=== PATIENT | male | born 1990 | race Two or more races ===

== ENCOUNTER 2020-12-10 22:36 | Emergency (ER) | payer SELFPAY ==
[~2020-12-10] VITALS: Ht 180.3 cm; Wt 86.2 kg
[2020-12-10 22:44] VITALS: BP 158/108
== END 2020-12-11 00:01 | disposition left against medical advice (07) ==
LOC: ER 22:36
DX: R51.9 Headache, unspecified (principal); R11.0 Nausea; Z53.21 Procedure and treatment not carried out due to patient leaving prior to being seen by health care provider